=== PATIENT | female | born 1990 | race Caucasian/White ===

== ENCOUNTER 2017-01-28 21:27 | Inpatient (IN) | payer OTHER ==
--- NOTE | ~2017-01-28 | DS ---
Unit #: [id number] #: [id number] Patient: [facility]EDRICK [id number] [facility] [address] [place] [address] [id number] MR#: [id number] NAME: SALLY HEDRICK ROOM: [facility] Age: 26 Sex: F Admission Date: 01/28/2017 : 1990 Discharge Date: 01/30/2017 Attending Physician: Juana De La Rosa M.D. DISCHARGE SUMMARY IDENTIFYING DATA Ms. Hedrick is a 26-year-old single white female, who is a resident of [place], [place] and was self-referred to the hospital on a voluntary basis. DISCHARGE DIAGNOSES Psychiatric: Major depressive disorder, recurrent, moderate, without psychotic features; opioid dependence, moderate; benzodiazepine dependence, moderate. Medical: Asthma and seizure disorder. Stressors: Moderate psychosocial stressors. HISTORY OF PRESENT ILLNESS Please see initial psychiatric evaluation for details. PAST PSYCHIATRIC HISTORY Please see initial psychiatric evaluation for details. PAST MEDICAL HISTORY Please see initial psychiatric evaluation for details. HOSPITAL COURSE The patient was admitted to the adult chemical dependency unit at [facility] and was oriented to the hospital environment. Routine p.r.n. medications were initiated and she was started on the detox protocol; however, she stated that she has not really detoxing as she has not used any drugs recently and she was just using Neurontin; therefore, was not meeting criteria for inpatient psychiatric hospitalization and as such, it was decided that she will be discharged home and will continue treatment on an outpatient basis. DISCHARGE MEDICATIONS Celexa 20 mg a day for depression, BuSpar 5 mg t.i.d. for anxiety. Remeron 15 mg at bedtime for depression. DISCHARGE CONDITION Stable. PROGNOSIS Fair. Dictated by... Juana De La Rosa M.D. Unit #: [id number] #: [id number] Patient: SALLY HEDRICK IAA/modl TD: 01/30/2017 07:17 JOB #: [id number] DISCHARGE SUMMARY Page 1 of 1 X Juana De La Rosa MD X DISCHARGE SUMMARY
--- NOTE | ~2017-01-28 | HP ---
Unit #: [id number] #: [id number] Patient: SALLY HEDRICK [id number] [place] [address] [id number] MR#: [id number] NAME: SALLY HEDRICK ROOM: P209 Age: 26 Sex: F Admission Date: 01/28/2017 : 1990 Attending Physician: Juana De La Rosa M.D. Admitting Physician: Juana De La Rosa M.D. Primary Care Physician: Primary Care Physician No HISTORY AND PHYSICAL HISTORY OF PRESENT ILLNESS Sally is a 26 year old admitted to [address] [place] [address] because of her abuse of gabapentin. She had just completed a 30 day program and has been clean from heroin but relapsed on gabapentin. PAST MEDICAL HISTORY 1. Long history of polysubstance abuse to include heroin. 2. History of withdrawal seizures. 3. Asthma. PAST SURGICAL HISTORY Nothing reported. ALLERGIES Penicillin, sulfa. SOCIAL HISTORY She does not smoke or drink. Has a history of heroin use but denies anything in 30 days. FAMILY HISTORY Medically noncontributory. REVIEW OF SYSTEMS CONSTITUTIONAL: No fever or chills. HEENT: Denies any sore throat, ear pain or runny nose. CARDIOVASCULAR: Denies chest pain, irregular heart rhythm or palpitations. CHEST: Denies shortness of breath or cough. No hemoptysis. GASTROINTESTINAL: Denies nausea, vomiting, diarrhea or chronic constipation. ENDOCRINE: Denies history of increased thirst or urination. No recent significant weight loss or gain. GENITOURINARY: Denies dysuria, frequency, or hematuria. SKIN: Denies any rashes. HEMATOLOGIC: Denies history of increased bleeding or bruising. MUSCULOSKELETAL: Denies any hot, swollen joints. No generalized muscle pain. NEUROLOGIC: Denies problems with vision or speech. No frequent, severe headaches. No numbness, tingling or weakness in any extremities. Denies loss of bladder or bowel control. CURRENT MEDICATIONS 1. Remeron 15 mg q.h.s. Unit #: [id number] #: [id number] Patient: SALLY HEDRICK 2. Celexa 20 mg daily. 3. Prednisone 30 mg daily. 4. Proventil inhaler p.r.n. 5. Milk of Magnesia p.r.n. 6. Maalox p.r.n. 7. Tylenol p.r.n. 8. BuSpar 5 mg t.i.d. PHYSICAL EXAMINATION GENERAL: Alert, well-nourished, in no apparent distress. VITAL SIGNS: Blood pressure 112/77, heart rate 90, respirations 16, temperature 98.6. WEIGHT: 168. HEIGHT: 5 feet 6 inches. SKIN: Warm and dry without rash or lesion. HEENT: Normocephalic. TMs not viewed. Oral and nasal passages clear. Conjunctivae clear. PERRLA. EOMs intact. NECK: Supple without lymphadenopathy or thyromegaly. HEART: Regular rate and rhythm without murmur. LUNGS: Bilateral wheezes. Harsh cough noted. ABDOMEN: Soft, nontender. : Not done. EXTREMITIES: No evidence of cyanosis, clubbing or edema. Moves all without focal deficit. NEUROLOGICAL: Grossly within normal limits. Cranial Nerves: II: Visual brizuela are intact. III, IV AND : Extraocular movements are intact. Pupils are equal, round and reactive to light. V: Facial sensation is grossly normal. VII: Facial movements and expression are normal. VIII: Auditory acuity grossly intact. IX, X: Uvula is midline. Phonation is normal. XI: Patient shrugs shoulders and turns head normally. XII: Tongue protrudes in the midline. Sensory and Motor Function: Sensory and motor sensation is grossly normal. Motor: moves all extremities well. Coordination: Gait is normal. Deep Tendon Reflexes: Intact. IMPRESSION Psychiatric admission. RECOMMENDATIONS PSYCHIATRIC: Per psychiatrist. MEDICAL: 1. See no contraindications to participate in facility's activities. 2. Dc prednisone. MEDICAL PROGNOSIS Good. MEDICAL CONDITION Stable. Dictated by... Alba Farris P.A.-C. for Pebbles Ramesh M.D. Unit #: [id number] #: [id number] Patient: SALLY HEDRICK TEA/symone TD: 01/29/2017 20:21 JOB #: [id number] HISTORY AND PHYSICAL Page 1 of 1 X Alba Farris HISTORY AND PHYSICAL
--- NOTE | ~2017-01-28 | PA ---
Unit #: [id number] #: [id number] Patient: SALLY HEDRICK [id number] [facility] [address] [place] [address] [id number] MR#: [id number] NAME: SALLY HEDRICK ROOM: P209 Age: 26 Sex: F Admission Date: 01/28/2017 : 1990 Date of Assessment: Attending Physician: Juana De La Rosa M.D. Admitting Physician: Juana De La Rosa M.D. Primary Care Physician: Primary Care Physician No PSYCHIATRIC ASSESSMENT DATE OF SERVICE 01/29/2017. IDENTIFYING DATA Ms. Hedrick is a 26-year-old single white female, who is a resident of [place], [place] and was self-referred to the hospital on a voluntary basis. CHIEF COMPLAINT "I'm taking more pills." HISTORY OF PRESENT ILLNESS Ms. Hedrick is a 26-year-old white female, who presented with history of substance abuse and stated that she has been taking 30 of 600 Neurontin over the course of several hours beginning on the morning of 01/28/2017 in approximately 2 or 3 in the morning and reports feeling burst and taking more pills and reports that she continue taking the pills and reports that she does not remember doing so and denied this was a suicide attempt and reports being discharged from rehab on 01/24/2017 having a seizure today approximately 07:30 in the morning and has history of abusing alcohol, cannabis, Xanax, opioids, and heroin and reports history of heroin and Xanax dependence and reports difficulty working due to her asthma and having disability for asthma and has history of seizure disorder as well. She reports that she was in coma for 20 days 2 to 3 years ago falling and asthma attack and does report increasing depression, anxiety, irritability, feelings of hopelessness and helplessness, but denies any suicidal ideations, intent, or plan. SUBSTANCE ABUSE HISTORY The patient reports history of alcohol, cannabis, opioid, and benzodiazepine abuse, and reports that she has been mixing drugs on regular basis. PAST PSYCHIATRIC HISTORY The patient has a history of inpatient chemical dependency treatment at [place], at [facility] and review of the medical records indicate that currently she is not active in any treatment program, and is not seeing a psychiatrist, though she is supposed to be on a combination of Celexa and Remeron. PAST MEDICAL HISTORY Asthma and seizure disorder. Unit #: [id number] #: [id number] Patient: SALLY HEDRICK ALLERGIES Penicillin and sulfa drugs. PERSONAL AND SOCIAL HISTORY A 26-year-old white female, who reports that she is single and unemployed, and lives by herself and has poor social support system. MENTAL STATUS EXAMINATION Young white female, who was casually dressed with fair personal hygiene, appears to be in no acute distress or discomfort. She was awake and alert on interaction with intact orientation to time, place, and person. Her mood was anxious and depressed with a congruent affect. Her speech was slow and goal directed. She denies any suicidal or homicidal ideations, and also denies any auditory or visual hallucinations. Her insight and judgment remain significantly impaired. DIAGNOSTIC IMPRESSION Psychiatric: Major depressive disorder, recurrent, moderate, without psychotic features; opioid dependence, moderate; benzodiazepine dependence, moderate. Medical: Asthma and seizure disorder. Stressors: Moderate psychosocial stressors. TREATMENT PLAN 1. The patient has presented with history of substance abuse and mood disorder, and has been decompensating and will need inpatient hospitalization for detoxification, safety, and stabilization. We will start her back on her home medications. We will adjust the medications and monitor response. 2. Supportive therapy was provided to the patient. 3. Safe, structured, and nourishing environment will be provided. ESTIMATED LENGTH OF STAY 4 to 5 days. ABILITY TO HELP SELF Limited. WILLINGNESS TO HELP SELF The patient appears to be willing to help self. STRENGTHS 1. Communicative. 2. Cooperative. PROBLEMS 1. Chronic dysphoric symptoms. 2. Chronic chemical dependency. 3. Poor social support system. DISCHARGE CRITERIA This will be contingent upon the patient's ability to show resolution of her depression and anxiety and her ability to stay safe to herself, particularly after discharge from the hospital. Dictated by... Juana De La Rosa M.D. Unit #: [id number] #: [id number] Patient: SALLY HEDRICK IAA/modl TD: 01/29/2017 07:14 JOB #: [id number] PSYCHIATRIC ASSESSMENT Page 1 of 1 X Juana De La Rosa MD PSYCHIATRIC ASSESSMENT
[2017-01-29 09:34] LABS: BASOPHIL# 0.1 X10e3 (0-0.3); EOSINOPHIL# 0.3 X10e3 (0-0.7); EOSINOPHIL% 4.9 % (0.0-7.0); HEMATOCRIT 41.4 % (35.0-45.0); HEMOGLOBIN 13.3 gm/dL (12.0-16.0); LYMPHOCYTE% 31.4 % (17.0-45.0); MEAN CELL VOLUME 88.7 FL (83-96); MEAN CORPUSCULAR HEMOGLOBIN 28.4 PG (28-34); MONOCYTE# 0.5 X10e3 (0-1.0); MONOCYTE% 7.1 % (3.0-12.0); NEUTROPHIL# 3.5 X10e3 (1.5-7.1); NEUTROPHIL% 55.6 % (40-75); PLATELET COUNT 236 X10e3 (140-420); RED BLOOD COUNT 4.66 X10e (3.90-5.30); RED CELL DISTRIBUTION WIDTH 14.5 % (11.0-15.5); WHITE BLOOD COUNT 6.4 X10e3 (4.0-10.5)
[2017-01-29 09:43] LABS: URINE APPEARANCE CLEAR; URINE BILIRUBIN NEG (NEG); URINE BLOOD NEG (NEG); URINE COLOR YELLOW; URINE GLUCOSE NEG (NEG); URINE KETONE NEG (NEG); URINE LEUKOCYTE ESTERASE NEG (NEG); URINE NITRATE NEG (NEG); URINE PROTEIN NEG (NEG); URINE SPECIFIC GRAVITY 1.019 (1.003-1.035); URINE UROBILINOGEN 0.2 MG/DL (NEG)
[2017-01-29 09:45] LABS: DIFF IND NO
[2017-01-29 10:02] LABS: THYROID STIMULATING HORMONE 0.55 uIU/ml (0.34-5.60)
[2017-01-29 10:09] LABS: FREE THYROXIN (T4) 0.76 ng/dL (0.58-1.64)
[2017-01-29 10:12] LABS: BILIRUBIN,TOTAL 0.8 mg/dL (0.2-2.0); CREATININE SERUM 0.7 mg/dL (0.6-1.4); GLOM FILT RATE Estimated 118.7 mL/min (>60); POTASSIUM 4.4 mmol/L (3.5-5.1); PROTEIN TOTAL SERUM 6.6 g/dL (6.0-8.3)
[2017-01-29 10:58] LABS: AMPHETAMINE NEG (NEG); BARBITURATES NEG (NEG); BENZODIAZEPINES NEG (NEG); COCAINE NEG (NEG); MARIJUANA NEG (NEG); OPIATES NEG (NEG); TRICYCLIC ANTIDEPRESSANTS POS (NEG); U METHADONE NEG (NEG)
== END 2017-01-30 09:47 | DRG 885 ==
LOC: P2S 21:27
PROVIDERS: Psychiatry & Neurology Psychiatry
PROC: HZ2ZZZZ Detoxification Services for Substance Abuse Treatment (ICD-10-PCS; principal; 2017-01-28)
DX: F33.1 Major depressive disorder, recurrent, moderate (principal); F11.20 Opioid dependence, uncomplicated; R56.9 Unspecified convulsions; F13.20 Sedative, hypnotic or anxiolytic dependence, uncomplicated; J45.909 Unspecified asthma, uncomplicated; Z88.0 Allergy status to penicillin; Z88.2 Allergy status to sulfonamides
CPT/HCPCS: 80053; 80307; 81003; 84439; 84443; 85025